=== PATIENT | female | born 1970 | race Two or more races ===

== ENCOUNTER 2020-11-29 14:06 | Emergency (ER) | payer SELFPAY ==
[~2020-11-29] VITALS: Ht 167.6 cm; Wt 108.9 kg
[2020-11-29 14:35] VITALS: BP 117/63
[2020-11-29] MEDS ORDERED: KETOROLAC TROMETH 60MG/2ML VIAL IM ONE (14:45)
== END 2020-11-29 15:49 | disposition home or self-care (01) ==
LOC: EDBD 14:06 → ER 14:06
DX: S60.221A Contusion of right hand, initial encounter (principal); S80.01XA Contusion of right knee, initial encounter; S20.212A Contusion of left front wall of thorax, initial encounter; S50.312A Abrasion of left elbow, initial encounter; V43.62XA Car passenger injured in collision with other type car in traffic accident, initial encounter; Y93.89 Activity, other specified; Y92.89 Other specified places as the place of occurrence of the external cause; Y99.8 Other external cause status
CPT/HCPCS: 71046; 73080; 73130; 96372; 99284; J1885